=== PATIENT | male | born 1945 | race African-American/Black ===

== ENCOUNTER 2016-11-22 06:43 | Emergency (ER) | payer MEDICARE, OTHER ==
[~2016-11-22] VITALS: Wt 136.0 kg
[2016-11-22] MEDS ORDERED: SOD CHLORIDE 0.9% 1,000 ML IV STA (07:03)
[2016-11-22] MEDS ORDERED: ONDANSETRON 4 MG INJ IV STA (07:03)
[2016-11-22] MEDS ORDERED: CEFTRIAXONE 1 GM/50 ML (PMX) 50 ML IVPB STA (07:03)
[2016-11-22] MEDS ORDERED: ACETAMINOPHEN 325 MG TAB PO ONE (07:30)
[2016-11-22] MEDS ORDERED: AZITHROMYCIN 250 MG TAB PO ONE (07:30)
[2016-11-22 07:33] LABS: BASOPHILS % 0.5 % (0.0-2.0); EOSINOPHILS % 0.8 % (0.0-7.0); HEMATOCRIT 32.6 % (42.0-52.0); HEMOGLOBIN 10.9 g/dl (14.0-18.0); LYMPHOCYTES # 0.9 10^3/ul (0.8-2.9); LYMPHOCYTES % 21.1 % (15.0-51.0); MEAN CORPUSCULAR HEMOGLOBIN 31.1 pg (29.0-33.0); MEAN CORPUSCULAR HGB CONC 33.6 g/dl (32.0-37.0); MEAN CORPUSCULAR VOLUME 92.7 fl (82.0-101.0); MEAN PLATELET VOLUME 9.7 fl (7.4-10.4); MONOCYTE # 0.7 10^3/ul (0.3-0.9); MONOCYTES % 17.4 % (0.0-11.0); NEUTROPHIL # 2.4 10^3/ul (1.6-7.5); NEUTROPHILS % 60.2 % (39.0-77.0); PLATELET COUNT 160 10^3/UL (140-440); RED BLOOD COUNT 3.51 10^6/ul (4.70-6.10); RED CELL DISTRIBUTION WIDTH 15.7 % (11.5-14.5); UNCORRECTED WBC 4.1 10^3/ul (4.8-10.8); WHITE BLOOD COUNT 4.1 10^3/ul (4.8-10.8)
[2016-11-22 07:34] LABS: CONDITION 1; LH ANALYZER COMMENTS 1
--- NOTE | 2016-11-22 07:42 | RADRPT ---
PROCEDURE: XR Chest. CLINICAL INDICATION: shortness of breath TECHNIQUE: Single portable view of the chest was obtained COMPARISON: None FINDINGS: There is mild cardiomegaly. There is mild pulmonary vascular congestion. There are bilateral perihilar and lower lobe infiltrat es. There is no pleural effusion.. There is no pneumothorax. The bones and soft tissues are unremarkable. RPTAT: AA IMPRESSION: Mild cardiomegaly with pulmonary vascular congestion. .Ab Avilez MD, MD Date Time Electronically viewed and signed by .Ab Avilez MD, MD on 11/22/2016 07:41 .S/
[2016-11-22 07:43] LABS: INR 1.16; PROTIME 14.8 Sec (12.2-14.2); PT RATIO 1.2
[2016-11-22 07:44] LABS: PARTIAL THROMBOPLASTIN TIME 29.7 Sec (25.0-35.0)
[2016-11-22 07:45] LABS: ALBUMIN 3.9 g/dl (3.3-4.9)
[2016-11-22 07:46] LABS: POTASSIUM 4.3 mmol/L (3.5-5.1)
[2016-11-22 07:48] LABS: BILIRUBIN,INDIRECT 0.1 mg/dl (0-1.1); BILIRUBIN,TOTAL 0.1 mg/dl (0.2-1.3); CREATININE 2.46 mg/dl (0.61-1.24)
[2016-11-22 07:49] LABS: ALBUMIN/GLOBULIN RATIO 1.18; TOTAL PROTEIN 7.2 g/dl (6.1-8.1)
[2016-11-22 07:51] VITALS: BP 164/78; PULSE 74; RESP 20; TEMP 102.3
[2016-11-22] MEDS ORDERED: OSLT75C PO (07:51)
[2016-11-22] MEDS ORDERED: BENZ100C70 PO (07:51)
[2016-11-22] MEDS ORDERED: OSELTAMIVIR 75 MG CAP PO ONE (08:00)
[2016-11-22 08:05] LABS: TROPONIN-I 0.035 ng/ml (0.00-0.12)
--- NOTE | 2016-11-22 09:00 | ERD ---
ER Documentation Chief Complaint Date/Time DATE: 11/22/16 TIME: 08:57 Chief Complaint FEVER AND COUGH AND WEAKNESS FOR THE PAST FEW DAYS. AP/N/V/D HPI Patient is a 71-year-old male with hypertension, diabetes, and chronic kidney disease who presents with fever and cough. He also has dizziness and vomiting. He also has whole body muscle aching. He said that he recently got [place] a cruise ship on Tuesday and his symptoms started on Tuesday. He tried Tylenol , Robitussin, and NyQuil. He did get a flu shot this year. Upon review of old medical records this is the patient's first visit to the emergency department. His primary doctor is in [place]. ROS All systems reviewed and are negative except as per history of present illness. Medications Home Meds Active Scripts Benzonatate* (Tessalon Perle*) 100 Mg Capsule, 100 MG PO Q8H Y for COUGH, #30 CAP Prov:BECKY GREENBERG MD 11/22/16 Oseltamivir Phosphate* (Tamiflu*) 75 Mg Capsule, 75 MG PO BID for 5 Days, CAP Prov:BECKY GREENBERG MD 11/22/16 Allergies Allergies: Coded Allergies: No Known Allergy (Unverified , 11/22/16) FmHx Family History: diabetes Physical Exam Vitals Vital Signs Date Time Temp Pulse Resp B/P Pulse Ox O2 Delivery O2 Flow Rate FiO2 11/22/16 07:51 102.3 74 20 164/78 98 Room Air 11/22/16 07:26 Nasal Cannula 11/22/16 06:51 102.2 91 22 163/81 97 Physical Exam Const: No acute distress Head: Atraumatic Eyes: Normal Conjunctiva ENT: Normal External Ears, Nose and Mouth. Neck: Full range of motion..~ No meningismus. Resp: Clear to auscultation bilaterally Cardio: Regular rate and rhythm, no murmurs Abd: Soft, non tender, non distended. Normal bowel sounds Skin: No petechiae or rashes Back: No midline or flank tenderness Ext: No cyanosis, or edema Neur: Awake and alert Psych: Normal Mood and Affect Result Diagram: 11/22/16 0710 11/22/16 0710 Results 24 hrs Laboratory Tests Test 11/22/16 07:10 Activated Partial Thromboplast Time 29.7Sec Alanine Aminotransferase (ALT/SGPT) 31IU/L Albumin 3.9g/dl Albumin/Globulin Ratio 1.18 Alkaline Phosphatase 49IU/L Anion Gap 15 Aspartate Amino Transf (AST/SGOT) 35IU/L Basophils # 0.010^3/ul Basophils % 0.5% Blood Morphology Comment Blood Urea Nitrogen 24mg/dl Calcium Level 9.0mg/dl Carbon Dioxide Level 31mmol/L Chloride Level 104mmol/L Creatinine 2.46mg/dl Direct Bilirubin 0.00mg/dl Eosinophils # 0.010^3/ul Eosinophils % 0.8% Globulin 3.30g/dl Glucose Level 168mg/dl Hematocrit 32.6% Hemoglobin 10.9g/dl INR International Normalized Ratio 1.16 Indirect Bilirubin 0.1mg/dl Lactic Acid Level 0.9mmol/L Lymphocytes # 0.910^3/ul Lymphocytes % 21.1% Mean Corpuscular Hemoglobin 31.1pg Mean Corpuscular Hemoglobin Concent 33.6g/dl Mean Corpuscular Volume 92.7fl Mean Platelet Volume 9.7fl Monocytes # 0.710^3/ul Monocytes % 17.4% Neutrophils # 2.410^3/ul Neutrophils % 60.2% Nucleated Red Blood Cells # 0.010^3/ul Nucleated Red Blood Cells % 0.0/100WBC Platelet Count 94493^3/UL Potassium Level 4.3mmol/L Prothrombin Time 14.8Sec Prothrombin Time Ratio 1.2 Red Blood Count 3.5110^6/ul Red Cell Distribution Width 15.7% Sodium Level 146mmol/L Total Bilirubin 0.1mg/dl Total Protein 7.2g/dl Troponin I 0.035ng/ml White Blood Count 4.110^3/ul Current Medications Medications (Trade) Dose Ordered Sig/Mariana Route PRN Reason Start Time Stop Time Status Last Admin Dose Admin Ceftriaxone Sodium (Rocephin) 50 ml @ 100 mls/hr ONCE STAT IVPB 11/22/16 07:03 11/22/16 07:32 DC 11/22/16 07:38 Azithromycin 500 mg 500 mg ONCE ONCE PO 11/22/16 07:30 11/22/16 07:31 DC 11/22/16 07:38 Sodium Chloride (NS) 1,000 ml @ 1,000 mls/hr Q1H STAT IV 11/22/16 07:03 11/22/16 08:02 DC 11/22/16 07:39 Ondansetron HCl (Zofran Inj) 4 mg ONCE STAT IV 11/22/16 07:03 11/22/16 07:05 DC 11/22/16 07:38 Acetaminophen (Tylenol Tab) 650 mg ONCE ONCE PO 11/22/16 07:30 11/22/16 07:31 DC 11/22/16 07:37 Oseltamivir Phosphate (Tamiflu) 75 mg ONCE ONCE PO 11/22/16 08:00 11/22/16 08:01 DC 11/22/16 08:02 Procedures/MDM EKG read by me: Rate/Rhythm: Regular rate and rhythm at a rate of 80 Intervals: Normal Impression: No evidence of ischemia or arrhythmia Chest x-ray shows no pneumonia per radiology. Influenza A+. Patient is a 71-year-old male who presents with acute influenza. His symptoms are consistent with fever, cough, vomiting, and body aches. The patient is otherwise well-appearing and well-hydrated. His laboratory studies show anemia but he does not require transfusion. Electrolytes are normal and lactic acid is normal. At this point I believe outpatient management is appropriate. He was given Tamiflu in the emergency department and will be given a prescription for Tamiflu and Tessalon Perles. He was given Tylenol in the ER as he did have a fever. I do not believe he requires inpatient admission at this time. Patient could return for any worsening symptoms. He should follow-up within 1- 2 days for recheck. Departure Diagnosis: Primary Impression: Influenza Additional Impressions: Acute weakness Anemia Anemia type: unspecified type Qualified Code: D64.9 - Anemia, unspecified type Chronic kidney disease Chronic kidney disease stage: unspecified stage Qualified Code: N18.9 - Chronic kidney disease, unspecified stage Condition: Fair Patient Instructions: Influenza (Adult) Referrals: [facility] YOU HAVE RECEIVED A MEDICAL SCREENING EXAM AND THE RESULTS INDICATE THAT YOU DO NOT HAVE A CONDITION THAT REQUIRES URGENT TREATMENT IN THE EMERGENCY DEPARTMENT. FURTHER EVALUATION AND TREATMENT OF YOUR CONDITION CAN WAIT UNTIL YOU ARE SEEN IN YOUR DOCTORS OFFICE WITHIN THE NEXT 1-2 DAYS. IT IS YOUR RESPONSIBILITY TO MAKE AN APPOINTMENT FOR FOLOW-UP CARE. IF YOU HAVE A PRIMARY DOCTOR --you should call your primary doctor and schedule an appointment IF YOU DO NOT HAVE A PRIMARY DOCTOR YOU CAN CALL OUR PHYSICIAN REFERRAL HOTLINE AT IF YOU CAN NOT AFFORD TO SEE A PHYSICIAN YOU CAN CHOSE FROM THE FOLLOWING [facility] [address] [facility] [address] [facility] [address] [facility] [address] [facility] [address] [facility]. [facility]. [address] Additional Instructions: Call your primary care doctor TOMORROW for an appointment during the next 1-2 days.See the doctor sooner or return here if your condition worsens before your appointment time. BECKY GREENBERG MD Nov 22, 2016 09:00
== END 2016-11-22 11:00 | disposition home or self-care (01) ==
LOC: E/R 06:43
DX: J10.1 Influenza due to other identified influenza virus with other respiratory manifestations (principal); I12.9 Hypertensive chronic kidney disease with stage 1 through stage 4 chronic kidney disease, or unspecified chronic kidney disease; N18.9 Chronic kidney disease, unspecified; D64.9 Anemia, unspecified; E11.9 Type 2 diabetes mellitus without complications; R53.1 Weakness
CPT/HCPCS: 36415; 71010; 80053; 83605; 84484; 85025; 85610; 85730; 87040; 87400; 93005; 96374; 96375; 99285; J0696; J2405; J7030